=== PATIENT | female | born 1970 | race Caucasian/White ===

== ENCOUNTER 2017-06-18 18:31 | Emergency (ER) | payer OTHER ==
[~2017-06-18] VITALS: Ht 157.5 cm; Wt 75.4 kg
[2017-06-18 20:41] VITALS: BP 127/81
== END 2017-06-18 20:41 | disposition home or self-care (01) ==
LOC: ED 18:31
DX: M43.6 Torticollis (principal)
CPT/HCPCS: J1100; J1885

== ENCOUNTER 2019-09-29 16:48 | Emergency (ER) | payer OTHER ==
[~2019-09-29] VITALS: Ht 167.6 cm; Wt 73.9 kg
[2019-09-29 17:03] VITALS: Ht 167.6 cm; Wt 73.9 kg
[2019-09-29 19:35] VITALS: BP 135/89
== END 2019-09-29 19:33 | disposition home or self-care (01) ==
LOC: ED 16:48
DX: G43.909 Migraine, unspecified, not intractable, without status migrainosus (principal); R42 Dizziness and giddiness; K21.9 Gastro-esophageal reflux disease without esophagitis
CPT/HCPCS: J1885; J2765